=== PATIENT | female | born 1975 | race Caucasian/White ===

== ENCOUNTER → 2024-07-18 | Day surgery (SDC) | payer BC ==
[~2024-07-18] MED LIST: CEFAZOLIN SODIUM 2 GM ONE; DEXAMETHASONE SOD PHOS INJ 4 MG/ML SDV ONE; FENTANYL CITRATE/PF 100MCG/2 ML INJ ONE; LIDOCAINE HCL 2% LOCAL INJ 5 ML SDV VIAL INJ ONE; MIDAZOLAM HCL 2 MG/2 ML VIAL ONE; NAPROXEN250 MG PO; ONDANSETRON HCL INJ 2MG/ML 2ML 2 MG/ML VIAL ONE; PROPOFOL IV EMULSION 10 MG/ML 20 ML VIAL ONE; SEVOFLURANE INHAL SOLN 250 ML PEN BTL ONE; TYLENOL#3 PO
[2024-07-18] MEDS: LACTATED RINGER'S 1,000 ML ONE (07:18)
[2024-07-18 09:45] VITALS: TEMP 97.9
[2024-07-18] MEDS: MEPERIDINE HCL INJ 25 MG/ML VIAL ONE (10:00)
[2024-07-18 10:50] VITALS: BP 129/79; PULSE 72; RESP 16; O2SAT 99
== END | disposition home or self-care (01) ==
LOC: OR 06:21
PROVIDERS: ATTEND Podiatrist Foot & Ankle Surgery
DX: S93.325A Dislocation of tarsometatarsal joint of left foot, initial encounter (principal); S92.252A Displaced fracture of navicular [scaphoid] of left foot, initial encounter for closed fracture; E66.9 Obesity, unspecified; X58.XXXA Exposure to other specified factors, initial encounter; Z01.810 Encounter for preprocedural cardiovascular examination; Z79.1 Long term (current) use of non-steroidal anti-inflammatories (NSAID)
CPT/HCPCS: 28485; 28615; 81025; 93005; C1713; J1100; J2003; J2175; J2250; J2405; J2704; J3010; J7121